=== PATIENT | male | born 1985 | race Caucasian/White ===

== ENCOUNTER 2019-11-17 01:02 | Emergency (ER) | payer OTHER ==
[~2019-11-17] VITALS: Ht 195.6 cm; Wt 110.2 kg
[2019-11-17 01:10] VITALS: BP 137/84
[2019-11-17] MEDS ORDERED: NORCO, ANEXSIA 5/325MG TABLET (HYDROcodone/ACETAMINOPHEN) PO ONE (01:45)
--- NOTE | 2019-11-17 02:11 | REP ---
Clinical: Trauma. Technique: AP, lateral, bilateral oblique views right hand . Findings: The osseous structures and joint spaces are intact and normal. There is no evidence for acute fracture or dislocation. Surrounding soft tissues are unremarkable. No subcutaneous emphysema or radiodense foreign body. Impression: Normal right hand series . No acute fracture or dislocation. Electronically Signed by Oleg Pinto MD 11/17/2019 02:02 A
== END 2019-11-17 02:32 | disposition home or self-care (01) ==
LOC: M ED 01:02
DX: S63.636A Sprain of interphalangeal joint of right little finger, initial encounter (principal); S60.221A Contusion of right hand, initial encounter; W23.0XXA Caught, crushed, jammed, or pinched between moving objects, initial encounter; Y92.89 Other specified places as the place of occurrence of the external cause; F17.200 Nicotine dependence, unspecified, uncomplicated